=== PATIENT | male | born 1950 | race Two or more races ===

== ENCOUNTER 2024-05-03 08:30 | Emergency (ER) | payer OTHER ==
[~2024-05-03] VITALS: Ht 165.1 cm; Wt 74.8 kg
[2024-05-03 08:39] VITALS: BP 170/85; O2SAT 97
[2024-05-03] MEDS ORDERED: COZAAR50 MG (08:39)
[2024-05-03] MEDS ORDERED: SYNTHROID112 MCG (08:39)
[2024-05-03] MEDS ORDERED: KETOROLAC TROMETHAMINE 30 MG VIAL IM STA (10:09)
[2024-05-03] MEDS ORDERED: ORPHENADRINE CITRATE 30 MG/ML AMPUL IM STA (10:10)
[2024-05-03] MEDS ORDERED: KETOROLAC TROMETHAMINE 30 MG VIAL ONE (10:39)
[2024-05-03] MEDS ORDERED: ORPHENADRINE CITRATE 30 MG/ML AMPUL ONE (10:39)
== END 2024-05-03 10:55 | disposition home or self-care (01) ==
LOC: ER 08:33
DX: M54.2 Cervicalgia (principal); I10 Essential (primary) hypertension
CPT/HCPCS: 96372; 99283; J1885; J2360